=== PATIENT | male | born 1950 | race Caucasian/White ===

== ENCOUNTER 2018-04-29 08:29 | Day surgery (SDC) | payer OTHER ==
[~2018-04-29] VITALS: Ht 177.8 cm; Wt 115.2 kg
[~2018-04-29 08:29] MED LIST: ALLERCLEAR10 MG PO; ALLOPURINOL100 MG PO; ASPIRIN EC81 MG PO; CO Q-10200 MG PO; FISH OIL 1,0001 EAC5; GLUCOSAMINE &1 EAC1 PO; HYZAAR 100-251 EACH PO; LEVOTHYROXINE112 MCG PO; MULTIVITAMINS1 EAC7 PO; NASONEX17 GM NAS; SIMVASTATIN40 MG PO
--- NOTE | 2018-04-29 10:28 | NUR ---
04/29/18 Júnior8 Maura Jewell 1023 PT ARRIVED EYES OPNE AND TALKLING. PT REPORTS DROWSINESS BUT DENIES PAIN AND NAUSEA. RESP EVEN AND UNLABORED.
--- NOTE | 2018-05-01 10:27 | OR ---
[facility] [address] [place], [place] [address] Signed DATE OF OPERATION: 04/29/2018 SURGEON: Radha Christianson MD PREOPERATIVE DIAGNOSIS: Personal history of colonic polyps in 2011. POSTOPERATIVE DIAGNOSIS: A 3 mm polyp, proximal right colon. PROCEDURE PERFORMED: Colonoscopy with hot biopsy. ESTIMATED BLOOD LOSS: None. INDICATIONS: Josh is a 67-year-old gentleman, asked to see me for a followup colonoscopy. He had an adenomatous polyp removed in 2011 up around 90 cm. He has no lower GI complaints currently. There is no family history of colon cancer or polyps. He did remind me he is going to moved to the [place], [place] area to be closer to his son. In the office, I gave him a pamphlet on colonoscopy. We looked at that together along with the risks including, but not limited to gas bloating, crampy abdominal pain, bleeding, perforation, requiring surgery, and missed diagnosis. We also discussed the need for IV conscious sedation. He had expressed understanding and wished to proceed. PROCEDURE NOTE: Josh was taken into our endoscopy suite and placed in the left lateral decubitus position. He was given IV sedation with 8 mg of Versed and 100 mcg of fentanyl. A digital rectal exam was performed and this was unremarkable. The adult colonoscope was introduced and advanced all the around into the cecum under direct visualization of camera without difficulty. His prep was good. Several areas were irrigated and suctioned out. In the proximal right colon there was a tiny polyp, which we removed with the help of a hot biopsy forceps. The rest of the colon and rectum were unremarkable. Upon retroflexion of the scope, there was no additional pathology noted above the anal canal. After this, the gas was suctioned out. The colonoscope was removed. Josh tolerated the procedure quite well. RECOMMENDATIONS: I will see Josh in my office in 7 to 14 days to review his results. I suspect he will Electronically Signed By: RADHA CHRISTIANSON MD 04/30/18 0907 Electronically Signed By: RADHA CHRISTIANSON MD 05/01/18 1106 PATIENT NAME: JOSH ANGELES OPERATIVE REPORT DATE OF : 54 REPORT #: [id number] PHYSICIAN: RADHA CHRISTIANSON MD PCP: JOÃO LUNA MD REPORT IS CONFIDENTIAL AND NOT TO BE RELEASED WITHOUT AUTHORIZATION [address] [address] Signed stay on the 5-year rotation. Radha Christianson MD ALB/MODL /[id number] cc: MD Radha Duarte MD Copies: JOOÃ LUNA MD, ANDREW L MD ~ Electronically Signed By: RADHA CHRISTIANSON MD 04/30/18 0907 Electronically Signed By: RADHA CHRISTIANSON MD 05/01/18 1106 PATIENT NAME: JOSH ANGELES OPERATIVE REPORT DATE OF : 54 REPORT #: [id number] PHYSICIAN: RADHA CHRISTIANSON MD PCP: JOÃO LUNA MD REPORT IS CONFIDENTIAL AND NOT TO BE RELEASED WITHOUT AUTHORIZATION
== END 2018-04-29 11:00 | disposition home or self-care (01) ==
LOC: OPS 08:29 → DS 08:29 → OPS 09:45
PROVIDERS: Colon & Rectal Surgery
PROC: 0DBK8ZZ Excision of Ascending Colon, Via Natural or Artificial Opening Endoscopic (ICD-10-PCS; principal; 2018-04-29 09:45)
DX: Z12.11 Encounter for screening for malignant neoplasm of colon (principal); K63.5 Polyp of colon; I10 Essential (primary) hypertension; E03.9 Hypothyroidism, unspecified; E78.5 Hyperlipidemia, unspecified; Z86.010 Personal history of colon polyps; Z98.890 Other specified postprocedural states; Z88.2 Allergy status to sulfonamides; Z79.82 Long term (current) use of aspirin; Z79.899 Other long term (current) drug therapy
CPT/HCPCS: 99153; G0500; J2250; J3010; J7120